=== PATIENT | male | born 1945 | race Caucasian/White ===

== ENCOUNTER 2025-04-28 17:12 | Emergency (ER) | payer OTHER, SELFPAY ==
[2025-04-28] VITALS (19 sets, daily range): BP systolic 81–131; BP diastolic 64–109; BMI 28.1
[2025-04-28 18:05] LABS: Hematocrit 43.8 % (39.0-52.0); Hemoglobin 15.7 g/dL (13.0-18.0); Mean Corp Hgb Conc. 35.8 g/dL (33.0-37.0); Mean Corpuscular Volume 94.4 fL (80.0-94.0); Nucleated Red Blood Cells % 0 % (-); Platelet Count 240 10^3/uL (130-400); Red Cell Dist. Width 12.5 % (11.5-14.5)
[2025-04-28 18:08] LABS: INR 1.37; PT 17.4 Sec (11.4-14.6)
[2025-04-28 18:30] LABS: ALT (SGPT) 29 U/L (0-50); AST (SGOT) 27 U/L (17-59); Albumin 4.3 g/dl (3.5-5.0); Alkaline Phosphatase 50 U/L (38-126); Blood Urea Nitrogen 18 mg/dl (9-20); Calcium 8.9 mg/dl (8.4-10.2); Carbon Dioxide 26 mmol/L (22-30); Chloride 106 mmol/L (98-107); Glucose 111 mg/dl (70-99); Potassium 4.2 mmol/L (3.5-5.1); Sodium 141 mmol/L (135-145); Total Protein 6.7 g/dl (6.3-8.2); eGFR > 60.00
[2025-04-28 18:31] LABS: Troponin I < 0.012 ng/ml
--- NOTE | 2025-04-28 20:50 | ED.GENMED ---
History of Present Illness
General
Chief Complaint: Cardiac Symptoms
Source: patient
Exam Limitations: none
Time Seen by Provider: 04/28/25 20:32
Nursing documentation reviewed up to this point in time: agreed with
History of Present Illness
History of Present Illness:
79-year-old male with a past medical history of COPD, paroxysmal SVT/atrial fibrillation on Pradaxa, CHF who presents to the emergency department sent in by his primary doctor due to tachycardia. Patient has history of atrial fibrillation/SVT in
the past and sees Dr. Martinez. He had a cardiac ablation with Dr. Liao in 2017, required a cardioversion in [address] Santizo says he has not had issues with his A-fib since. He had a routine appointment with his primary care physician
today and when I checked his vital signs he was noted to be tachycardic, cardiogram showed narrow complex tachycardia concerning for SVT. 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 Patient says he has no
symptoms�he says he has some mild chronic dyspnea related to emphysema but not any worse than usual. He denies any chest pain or palpitations, dizziness or lightheadedness, leg swelling or any other acute issues. He is on Pradaxa and reports
compliance without any missed doses.
Past History
Past History
ED Past Medical History: None
ED Past Surgical History: None
Social History
Tobacco: Non-smoker
Alcohol: Occasional
Review of Systems
Review of Systems
All Other Systems: ROS reviewed and negative except as documented in HPI and ROS
Constitutional: Denies fever
Respiratory: Denies trouble breathing (Chronic and unchanged)
Cardiac: Denies chest pain, palpitations or syncope
ABD/GI: Denies abdominal pain
: Denies flank pain
Musculoskeletal: Denies edema, neck pain or back pain
Neurological: Denies dizzy or headache
Phy Exam
Physical Exam
Physical Exam:
General: Awake, alert, oriented x3; no acute distress
Head: Normocephalic, atraumatic
Eyes: Conjunctiva normal
Throat: Airway intact, handling secretions
Neck: Trachea midline, no JVD
Lungs: Clear to auscultation bilaterally, no wheezing, rales, rhonchi; occasional cough, no tachypnea
Heart: Tachycardia with regular rhythm, no murmurs, gallops, or rubs
Abd: Soft, non distended, nontender
Neuro: No gross deficits
Skin: no rash
Extremities: No edema in extremities, equal pulses in all extremities
Scores
Heart Failure Risk
Heart Failure Risk Score: Not Applicable
Heart Score for Chest Pain Patients
STEMI patient?: Not applicable
Withdrawal Assessment of Alcohol
Withdrawal Assessment Completed?: Not applicable
Course
Orders/Labs/Results
Orders:
Orders
04/28/25 17:13
ECG [Electrocardiogram (*1)] Urgent
Reason for Study: Chest Pain
04/28/25 17:14
EKG- Treatment ONCE
04/28/25 17:41
Complete Blood Count/With Diff Urgent
Comprehensive Metabolic Panel Urgent
PT/INR [Prothrombin Time] Urgent
Troponin I Urgent
04/28/25 21:33
Propofol [Diprivan] 20 ml .ROUTE .STK-MED
04/28/25 22:02
EKG [Electrocardiogram (*1)] Urgent
Reason for Study: Atrial Flutter
EKG- Treatment ONCE
Abnormal Lab Results
04/28/25
17:41
RBC 4.64 L 10^6/uL
(4.70-6.10)
MCV 94.4 H fL
(80.0-94.0)
MCH 33.8 H pg
(27.0-31.0)
Absolute Monos (auto) 0.9 H 10^3/uL
(0.1-0.6)
Monocytes % 11.8 H %
(1.7-9.3)
PT 17.4 H Sec
(11.4-14.6)
Glucose 111 H mg/dl
(70-99)
04/28/25 17:41
04/28/25 17:41
Vital Signs
Initial and Last Documented VS:
Initial Vital Signs
Temp Pulse Resp BP Pulse Ox
36.9 C 140 16 121/93 98
04/28/25 17:17 04/28/25 17:17 04/28/25 17:17 04/28/25 17:17 04/28/25 17:17
Last Documented Vital Signs
Temp Pulse Resp BP Pulse Ox
36.9 C 81 15 112/78 94
04/28/25 17:17 04/28/25 22:30 04/28/25 22:30 04/28/25 22:30 04/28/25 22:30
Procedures
Cardioversion
Indication:: Other (atrial flutter)
Performed by:: Santiago Herrera MD
Synchronized?: Yes
Energy Used: 200 joules
Number of attempts: 1
Successful?: Yes
ASA Risk Score: Class III
Any reaction or bad outcome to prior sedation/anesthesia?: No history of a reaction
Sedation level to be attained: moderate
Chart and allergies reviewed: Yes
Patient reassessed prior to sedation: Yes
Time out completed at (validating right patient & procedure): 21:55
History of difficult intubation: No
Airway free of obstruction: Yes
Patient has a gag reflex: Yes
Patient is able to open mouth: Yes
Patient has no dentures: Yes
Patient has no loose teeth: Yes
Medication administered by Provider during Moderate Sedation: IV Propofol (mg)
Total dose administered: 50
Time drug administered: 21:55
Start Time: 21:55
Stop Time: 22:05
MDM/Problems Addressed
Differential Diagnosis Includes:
Atrial fibrillation, atrial flutter, SVT
MDM/Problems Addressed:
79-year-old male presents to the ER from his primary care office after incidental note of tachycardia as described above. Patient reports no symptoms. He has a known history of A-fib/SVT status post prior ablation, cardioversion. He has been
maintained on Pradaxa. His EKG here shows narrow complex regular tachycardia with rate of 144�appears to be consistent with atrial flutter. He is normotensive. No signs of CHF. Routine labs sent off and unremarkable. Case was discussed with
cardiology�given that he has been consistent with Pradaxa with no missed doses he is a reasonable candidate for elective ED cardioversion. I had a long discussion with the patient and his son about treatment options including cardioversion here in
the emergency room electively versus rate control. He wishes to proceed with ED cardioversion.
Patient cardioverted successfully as documented in procedure note. Remains asymptomatic. Will monitor after cardioversion but if he remains stable with no symptoms can likely be discharged with cardiology follow-up.
Chronic conditions affecting care:
Atrial fibrillation/flutter
*Pulse Oximetry
SaO2: 98
Oxygen Mode of Delivery: Room air
Patient hypoxic: no (98%)
*EKG
Interpreted by ED Provider?: Yes
Heart Rate: 144
Rate: tachycardiac
Rhythm: atrial flutter
[place]: normal axis
Interval: normal interval
QRS Pattern: normal QRS
Ischemia: non-specific ST changes
*Critical Care Note
Total Time (30-74mins, 75-104mins- exclusive of procedures): Not Applicable
Data Reviewed
Source: patient, records and family
Patient Management
Discussion with other providers: Emergency Nurse (Discussed with cardiology)
ED Attending Note
-
Portions of this chart may have been created with voice recognition software.� Occasional wrong word or��sound alike� substitutions may have occurred due to the inherent limitations of voice recognition software.
Discharge Plan
Departure
Patient Disposition: Home (Routine Discharge)
Date of Disposition: 04/28/25
Time of Disposition: 22:40
Patient with high blood pressure during this ER visit?: No
Discharge Problem:
Atrial flutter
Instructions: Atrial fibrillation and atrial flutter - ED discharge instructions
Prescriptions:
No Action
metoprolol succinate 100 MG tablet extended release 24 hr
100 mg PO BID Qty: 60 2RF
dabigatran etexilate [Pradaxa] 150 MG capsule
150 mg PO BID Qty: 60 2RF
atorvastatin 10 MG tablet
10 mg PO DAILY
pollens extract [Prostat] 1 TAB tablet
1 mg PO DAILY
diltiazem HCl 60 MG tablet
120 mg PO DAILY
knamcxvpkqqi-macd-xhvny acid [Essentia] 1 EACH tablet
1 ea PO DAILY
spironolactone 12.5 MG tablet
25 mg PO BID
Referrals:
Rigoberto Martinez MD [Active, Cardiology] - Call in 1-3 days for appt
Gabriel Contreras MD [Family Provider, Family Practice]
Activity Restrictions/Additional Instructions:
Thank you for visiting the Emergency Department at [facility].
1. Please schedule a follow up appointment as directed. Call first thing tomorrow morning to make an appointment.
2. If indicated, please take your medications as instructed and indicated on discharge paperwork.
3. If any of your symptoms do not improve, or persist, or become more severe within 6-12 hours, please return to the emergency department for further care.
4. Please return to the emergency department if you develop a headache, neck pain/stiffness, fever greater than 100.4F, chest pain, shortness of breath, persistent nausea, vomiting, slurred speech, difficulty walking, numbness/tingling, weakness,
signs of infection or any other symptoms that are worrisome to you.
Please call [phone] if you have any questions.
Interventions
Interventions:
*Risk Screen - Suicide Last Done: 04/28/25 17:17
*General Assessment Last Done: 04/28/25 20:48
*Neglect/Abuse Screening Last Done: 04/28/25 17:17
*ED- Fall Risk Assessment Last Done: 04/28/25 20:48
*ED COVID-19 Vaccine History Last Done: 04/28/25 20:48
ED- Cardiac Assessment Last Done: 04/28/25 20:48
ED- Pulmonary Assessment Last Done: 04/28/25 20:48
Discharge Date and Time
Print Language: PASHTO
== END 2025-04-28 23:05 | disposition home or self-care (01) ==
LOC: EMR 17:12
PROVIDERS: Emergency Medicine; EMERGENCY PHYSICIAN Emergency Medicine; FAMILY PHYSICIAN Family Medicine
DX: I48.92 Unspecified atrial flutter (principal); I48.91 Unspecified atrial fibrillation; J44.9 Chronic obstructive pulmonary disease, unspecified; Z79.01 Long term (current) use of anticoagulants; I50.9 Heart failure, unspecified
CPT/HCPCS: 92960; 99152; 99285; 80053; 84484; 85025; 85610; 93005

== ENCOUNTER → 2025-06-08 14:01 | Outpatient (REF) | payer OTHER, SELFPAY | LOC: HWRCS 14:01 | PROVIDERS: ATTENDING PHYSICIAN Nurse Practitioner; FAMILY PHYSICIAN Family Medicine | DX: I48.0 Paroxysmal atrial fibrillation (principal); I50.32 Chronic diastolic (congestive) heart failure; I48.3 Typical atrial flutter; I25.10 Atherosclerotic heart disease of native coronary artery without angina pectoris; I51.3 Intracardiac thrombosis, not elsewhere classified | CPT/HCPCS: 93306 ==